=== PATIENT | female | born 1970 | race African-American/Black ===

== ENCOUNTER 2017-12-03 16:24 | Emergency (ER) | payer OTHER ==
[~2017-12-03] VITALS: Ht 152.4 cm; Wt 74.8 kg
[2017-12-03 17:09] LABS: PLATELET COUNT 272 K/uL (152-353)
== END 2017-12-03 18:03 | disposition home or self-care (01) ==
LOC: ED 16:24
DX: J18.9 Pneumonia, unspecified organism (principal)
CPT/HCPCS: 36415; 85027; 87081; 87880; 96372; 99283; J0696; J1100

== ENCOUNTER 2018-02-09 09:51 | Outpatient (CLI) | payer OTHER | END 2018-02-09 21:56 | disposition home or self-care (01) | LOC: MAMMO 09:51 | DX: Z12.31 Encounter for screening mammogram for malignant neoplasm of breast (principal) ==

== ENCOUNTER 2020-01-09 09:16 | Outpatient (CLI) | payer OTHER | END 2020-01-09 19:14 | disposition home or self-care (01) | LOC: MAMMO 09:16 | DX: Z12.31 Encounter for screening mammogram for malignant neoplasm of breast (principal) ==

== ENCOUNTER 2021-04-08 10:25 | Outpatient (CLI) | payer OTHER | END 2021-04-08 21:46 | disposition home or self-care (01) | LOC: MAMMO 10:25 | PROVIDERS: ATTEND Internal Medicine | DX: Z12.31 Encounter for screening mammogram for malignant neoplasm of breast (principal) ==

== ENCOUNTER 2023-02-09 09:11 | Outpatient (CLI) | payer OTHER | END 2023-02-09 19:00 | disposition home or self-care (01) | LOC: MAMMO 09:11 | PROVIDERS: ATTEND Internal Medicine | DX: Z12.31 Encounter for screening mammogram for malignant neoplasm of breast (principal) ==